=== PATIENT | female | born 1960 | race Caucasian/White ===

== ENCOUNTER → 2021-03-16 | Outpatient (CLI) | payer MEDICARE | LOC: KOH-I 03-08 14:30 | DX: F17.210 Nicotine dependence, cigarettes, uncomplicated (principal); J43.2 Centrilobular emphysema; R91.8 Other nonspecific abnormal finding of lung field | CPT/HCPCS: 71271 ==

== ENCOUNTER → 2021-03-17 | Outpatient (CLI) | payer OTHER | LOC: MAMO 08:10 | DX: Z12.31 Encounter for screening mammogram for malignant neoplasm of breast (principal); Z78.0 Asymptomatic menopausal state; M85.89 Other specified disorders of bone density and structure, multiple sites | CPT/HCPCS: 77063; 77067; 77080 ==